=== PATIENT | female | born 1965 | race Caucasian/White ===

== ENCOUNTER 2017-10-13 15:12 | Emergency (ER) | payer BC ==
--- NOTE | 2017-10-13 16:08 | UC ---
Throat Pain/Nasal Joaquin HPI - HPI Summary HPI Summary: 52 YEAR OLD FEMALE PRESENTS WITH COMPLAINS OF SINUS CONGESTION. - History of Current Complaint Stated Complaint: EAR,SINUSES Time Seen by Provider: 10/13/17 16:08 Hx Obtained From: Patient Hx Last Menstrual Period: MAY.PERIODS ARE IRREG, GOING THRU MENOPAUSE SHE THINKS Onset/Duration: Sudden Onset Severity: Moderate Cough: Nonproductive Associated Signs & Symptoms: Positive: Negative - Allergies/Home Medications Allergies/Adverse Reactions: Allergies Allergy/AdvReac Type Severity Reaction Status Date / Time No Known Allergies Allergy Verified 10/13/17 16:53 Home Medications: Home Medications Glimepiride (NF) 4 mg PO DAILY 10/13/17 [History Confirmed 10/13/17] metFORMIN* [Glucophage 1000 MG TAB *] 1,000 mg PO BID 10/13/17 [History Confirmed 10/13/17] PMH/Surg Hx/FS Hx/Imm Hx Previously Healthy: Yes - Surgical History Surgical History: Yes Surgery Procedure, Year, and Place: Gastric Bypass, 08/22/12, [place]. , 2002, [facility]. Cholecystectomy, [facility]. TUBAL LIGATION. UTERINE ABLATION - Family History Known Family History: Positive: None - Social History Alcohol Use: None Substance Use Type: None Smoking Status (MU): Never Smoked Tobacco Review of Systems Constitutional: Negative Skin: Negative Eyes: Negative ENT: Sore Throat, Nasal Discharge, Sinus Congestion, Sinus Pain/Tenderness Respiratory: Cough Cardiovascular: Negative Gastrointestinal: Negative Genitourinary: Negative Motor: Negative Neurovascular: Negative Musculoskeletal: Negative Neurological: Negative Psychological: Negative All Other Systems Reviewed And Are Negative: Yes Physical Exam Triage Information Reviewed: Yes Vital Signs Reviewed: Yes Eye Exam: Normal ENT: Positive: Nasal congestion, Nasal drainage, Sinus tenderness Dental Exam: Normal Neck exam: Normal Neck: Positive: 1 Respiratory Exam: Normal Cardiovascular Exam: Normal Abdominal Exam: Normal Musculoskeletal Exam: Normal Neurological Exam: Normal Psychological Exam: Normal Skin Exam: Normal Throat Pain/Nasal Course/Dx - Differential Dx/Diagnosis Provider Diagnoses: SINUSITIS Discharge - Discharge Plan Condition: Stable Disposition: HOME Prescriptions: Amoxicillin/Clavulanate TAB* [Augmentin TAB 875*] 875 mg PO BID #20 tab Methylprednisolone [Medrol Dosepak 4 MG*] 4 mg PO .SEE ELEUTERIO INSTRUCTION #21 tab Neomyc/Polym/HC 1% OTIC SUSP* [Cortisporin Otic Susp 1%*] 4 drop BOTH EARS QID # 1 btl Patient Education Materials: Sinusitis (ED) Referrals: Elvira Mallory MD [Medical Doctor] -
[2017-10-13 16:54] VITALS: BP 150/90
== END 2017-10-13 17:14 | disposition home or self-care (01) ==
LOC: UCCORT 15:12
DX: J32.9 Chronic sinusitis, unspecified (principal); Z98.84 Bariatric surgery status; Z90.49 Acquired absence of other specified parts of digestive tract
CPT/HCPCS: 99212; G0463

== ENCOUNTER 2017-11-18 10:32 | Emergency (ER) | payer BC ==
[2017-11-18 13:19] VITALS: BP 134/73
--- NOTE | 2017-11-18 13:37 | UC ---
Respiratory Complaint HPI - HPI Summary HPI Summary: 52 yo female with f/c/cough and runny nose x <48 hours avila and myalgias no cp or sob her just diagnosed with flu - History of Current Complaint Chief Complaint: UCGeneralIllness Stated Complaint: FLU SYMPTOMS Time Seen by Provider: 11/18/17 13:13 Hx Last Menstrual Period: MAY.PERIODS ARE IRREG, GOING THRU MENOPAUSE SHE THINKS Onset/Duration: Sudden Onset, Lasting Hours Timing: Constant Severity Initially: Moderate Severity Currently: Moderate Pain Intensity: 7 Character: Cough: Nonproductive Associated Signs And Symptoms: Positive: Nasal Congestion, Sinus Discomfort - Allergies/Home Medications Allergies/Adverse Reactions: Allergies Allergy/AdvReac Type Severity Reaction Status Date / Time No Known Allergies Allergy Verified 11/18/17 13:14 Home Medications: Home Medications Atorvastatin* [Lipitor*] 10 mg PO DAILY 11/18/17 [History Confirmed 11/18/17] PMH/Surg Hx/FS Hx/Imm Hx Previously Healthy: Yes Endocrine History: Diabetes, Dyslipidemia Cardiovascular History: Hypertension GI/ History: Gastroesophageal Reflux - Surgical History Surgical History: Yes Surgery Procedure, Year, and Place: Gastric Bypass, 08/22/12, [place]. , 2002, [facility]. Cholecystectomy, [facility]. TUBAL LIGATION. UTERINE ABLATION - Family History Known Family History: Positive: Hypertension - Social History Alcohol Use: None Substance Use Type: None Smoking Status (MU): Never Smoked Tobacco - Immunization History Most Recent Influenza Vaccination: [id number] Review of Systems Constitutional: Fever, Chills, Fatigue Skin: Negative Eyes: Negative ENT: Nasal Discharge, Sinus Congestion Respiratory: Cough Cardiovascular: Negative Gastrointestinal: Negative Genitourinary: Negative Motor: Negative Neurovascular: Negative Musculoskeletal: Myalgia Neurological: Negative Psychological: Negative All Other Systems Reviewed And Are Negative: Yes Physical Exam Triage Information Reviewed: Yes Appearance: Well-Appearing, No Pain Distress, Well-Nourished Vital Signs: Initial Vital Signs Temp 100.6 F 11/18/17 13:11 Pulse 104 11/18/17 13:11 Resp 18 11/18/17 13:11 BP 134/73 11/18/17 13:11 Pulse Ox 96 11/18/17 13:11 Eye Exam: Normal ENT: Positive: Hearing grossly normal, Pharyngeal erythema, Nasal congestion, Nasal drainage. Negative: Trismus, Muffled voice, Hoarse voice Neck: Positive: Supple, Nontender, No Lymphadenopathy Respiratory: Positive: Lungs clear, Normal breath sounds, No respiratory distress, No accessory muscle use Cardiovascular: Positive: RRR, No Murmur Musculoskeletal: Positive: ROM Intact, No Edema Neurological: Positive: Alert Psychological Exam: Normal Skin Exam: Normal UC Diagnostic Evaluation - Laboratory Pertinent Lab Values Are: WNL Except: - influenza A (+) O2 Sat by Pulse Oximetry: 96 - normal/not hypoxic Respiratory Course/Dx - Differential Dx/Diagnosis Provider Diagnoses: influenza Discharge - Discharge Plan Condition: Stable Disposition: HOME Prescriptions: Oseltamivir CAP* [Tamiflu CAP*] 75 mg PO BID #10 cap Patient Education Materials: Influenza (DC) Forms: *Work Release Referrals: Guera Nelson MD [Primary Care Provider] - 5 Days (if not better) Additional Instructions: rest fluids tylenol robitussin or mucinex
== END 2017-11-18 13:51 | disposition home or self-care (01) ==
LOC: UCCORT 10:32
DX: J11.1 Influenza due to unidentified influenza virus with other respiratory manifestations (principal); E11.8 Type 2 diabetes mellitus with unspecified complications; E78.5 Hyperlipidemia, unspecified; I10 Essential (primary) hypertension; K21.9 Gastro-esophageal reflux disease without esophagitis
CPT/HCPCS: 87502; 99212; G0463

== ENCOUNTER 2017-11-23 11:14 | Emergency (ER) | payer BC ==
[2017-11-23 13:47] VITALS: BP 136/93
--- NOTE | 2017-11-23 14:02 | UC ---
Respiratory Complaint HPI - HPI Summary HPI Summary: 52 y.o female d/x'd with flu 1 weeks ago, started on tamiflu, patient began to feel slightly better, however now with sinus pain, discomfort, cough. denies chest pain, palpitations. + fever intermittently, chills. + ear pain - History of Current Complaint Chief Complaint: UCRespiratory Stated Complaint: ST Time Seen by Provider: 11/23/17 13:43 Hx Obtained From: Patient Hx Last Menstrual Period: MAY.PERIODS ARE IRREG, GOING THRU MENOPAUSE SHE THINKS ?: No Onset/Duration: Sudden Onset Timing: Constant Severity Initially: Moderate Severity Currently: Moderate Pain Intensity: 8 Pain Scale Used: 0-10 Numeric - Allergies/Home Medications Allergies/Adverse Reactions: Allergies Allergy/AdvReac Type Severity Reaction Status Date / Time No Known Allergies Allergy Verified 11/23/17 13:37 PMH/Surg Hx/FS Hx/Imm Hx Previously Healthy: Yes - h/o flu - Surgical History Surgical History: Yes Surgery Procedure, Year, and Place: Gastric Bypass, 08/22/12, [place]. , 2002, [facility]. Cholecystectomy, [facility]. TUBAL LIGATION. UTERINE ABLATION. KNEE ARTHORSCOPY - Family History Known Family History: Positive: None, Hypertension - Social History Alcohol Use: None Substance Use Type: None Smoking Status (MU): Never Smoked Tobacco - Immunization History Most Recent Influenza Vaccination: [id number] Review of Systems Constitutional: Fever, Chills ENT: Sore Throat, Ear Ache, Sinus Congestion, Sinus Pain/Tenderness Respiratory: Cough Gastrointestinal: Nausea Is Patient Immunocompromised?: No All Other Systems Reviewed And Are Negative: Yes Physical Exam Triage Information Reviewed: Yes Appearance: No Pain Distress, Well-Nourished, Ill-Appearing - mild Vital Signs: Initial Vital Signs Temp 98.3 F 11/23/17 13:38 Pulse 108 11/23/17 13:38 Resp 18 11/23/17 13:38 BP 136/93 11/23/17 13:38 Pulse Ox 97 11/23/17 13:38 Vital Signs Reviewed: Yes Eyes: Positive: Conjunctiva Clear ENT: Positive: Pharyngeal erythema - mild no exudates, Nasal congestion, TM bulging - b/l dull, fluid posterior to TM b/l, tragus tenderness with pulling., TM dull, TM red, Sinus tenderness, Uvula midline Neck: Positive: Supple, Nontender, Enlarged Nodes @ - minimal submand Respiratory: Positive: Lungs clear, Normal breath sounds, No respiratory distress, No accessory muscle use. Negative: Crackles, Rhonchi, Stridor, Wheezing Cardiovascular: Positive: RRR, No Murmur, Pulses Normal Abdomen Description: Negative: CVA Tenderness (R), CVA Tenderness (L) UC Diagnostic Evaluation - Laboratory O2 Sat by Pulse Oximetry: 97 Respiratory Course/Dx - Course Course Of Treatment: sinusitis with acute bronchitis, abx given for sinusitis, follow upw ith primary increase fluids, rest. - Differential Dx/Diagnosis Provider Diagnoses: sinusitis, actue bronchitis Discharge - Discharge Plan Condition: Fair Disposition: HOME Prescriptions: Azithromyxin ELEUTERIO (NF) [Z-Eleuterio (Zithromax) 250 mg tabs #6] 2 tab PO .TODAY, THEN 1 DAILY #6 tab Dextromethorphan/Benzocaine [Cepacol Sorethroat-Cough Patricia] 1 each PO Q6HR #30 lozenge Patient Education Materials: Sinusitis (ED), Acute Bronchitis (ED) Forms: *Work Release Referrals: Guera Nelson MD [Primary Care Provider] - Additional Instructions: - Increase fluid intake - WOrk note - ANtibiotics for sinusitis - FOllow up with primary if no improvement within 5-7 days
== END 2017-11-23 14:12 | disposition home or self-care (01) ==
LOC: UCCORT 11:14
DX: J32.9 Chronic sinusitis, unspecified (principal); J20.9 Acute bronchitis, unspecified
CPT/HCPCS: 99212; G0463